=== PATIENT | female | born 2005 | race Caucasian/White ===

== ENCOUNTER 2024-03-30 03:41 | Emergency (ER) | payer MEDICAID ==
[~2024-03-30] VITALS: Ht 167.6 cm; Wt 54.0 kg
[2024-03-30 03:54] VITALS: O2SAT 98
[2024-03-30] MEDS ORDERED: VANCOMYCIN 1G PREMIX 200 ML IV ONE (04:45)
[2024-03-30 05:04] LABS: BASOPHILS % 0.5 % (0.0-2.0); EOSINOPHILS % 0.8 % (0.0-5.0); HEMATOCRIT. 40.7 % (36.0-48.0); HEMOGLOBIN. 13.2 g/dL (12.0-16.0); LYMPHOCYTES % 18.6 % (20.0-50.0); MEAN CORPUSCULAR HGB CONC 32.3 g/dL (31.0-37.0); MEAN PLATELET VOLUME 8.6 fl (7.4-10.4); MONOCYTES % 6.8 % (2.0-8.0); NEUTROPHILS % 73.3 % (40.0-76.0); PLATELET 327 x1000/uL (130-400); RED BLOOD CELL COUNT 4.12 mill/uL (4.2-5.4); RED CELL DISTRIBUTION WIDTH 13.8 % (11.6-14.6); WHITE BLOOD COUNT 14.5 x1000/uL (4.5-11.0)
[2024-03-30 05:10] LABS: CHLORIDE 106 mEq/L (98-107); POTASSIUM 3.8 mEq/L (3.5-5.1); SODIUM 140 mEq/L (136-145)
[2024-03-30 05:11] LABS: CARBON DIOXIDE 27 mEq/L (21-32)
[2024-03-30 05:12] LABS: CALCIUM 9.9 mg/dL (8.7-10.4)
[2024-03-30 05:16] LABS: CREATININE 0.8 mg/dL (0.6-1.0); GLUCOSE 90 mg/dL (70-105); UREA NITROGEN BLOOD 13 mg/dL (9-23)
[2024-03-30] MEDS: SODIUM CHLORIDE 0.9% (SEPSIS BOLUS) IV ONE (05:25)
[2024-03-30 05:37] LABS: HCG SCREEN NEGATIVE
[2024-03-30] MEDS ORDERED: CEPH500T MT (05:42)
[2024-03-30] MEDS ORDERED: IBUP-2029 MT (05:42)
[2024-03-30] MEDS ORDERED: DOXY100C74 MT (05:42)
[2024-03-30] MEDS ORDERED: VANCOMYCIN 750MG/250ML 250 ML IV NR (05:45)
[2024-03-30] MEDS: VANCOMYCIN 1000MG/250ML 250 ML IV NR (06:17)
[2024-03-30] MEDS: IBUPROFEN 600MG TABLET PO ONE (06:18)
[2024-03-30 08:40] VITALS: BP 98/67; PULSE 100; RESP 14; TEMP 36.72516; O2SAT 99
== END 2024-03-30 08:43 | disposition home or self-care (01) ==
LOC: ER 03:41 → CANBEDREQ 05:51 → ER 08:43
DX: L03.113 Cellulitis of right upper limb (principal); Z79.899 Other long term (current) drug therapy
CPT/HCPCS: 80048; 84703; 83605; 85025; 87040; 36415; 96361; 96365; 99284; J3370; J7030; Z7610; 96360